=== PATIENT | male | born 1980 | race African-American/Black ===

== ENCOUNTER 2023-01-29 05:47 | Emergency (ER) | payer SELFPAY ==
[2023-01-29 05:51] VITALS: BP 136/97; PULSE 97; RESP 16; TEMP 36.8; O2SAT 98; BMI 23.1
--- NOTE | 2023-01-29 06:01 | ED_ITS ---
HPI - Skin/Abscess/Foreign Bdy General Chief complaint: Skin/Abscess/Foreign Body Stated complaint: OTHER Time Seen by Provider: 01/29/23 06:01 History of Present Illness HPI narrative: Patient presents to emergency department complaining of rectal pain and swelling. He states symptoms started 3 days ago. He has had this in the past and he gets antibiotics and aerosols. He has some doxycycline left from a previous boil and he took it the last 2 days and he has not had any relief but states that is getting worse more swollen and more painful. Patient states he had fever, and chills. Denies any nausea, vomiting, diarrhea, or abdominal pain. He denies any IV drug use. He does smoke marijuana. Related Data Allergies Allergy/AdvReac Type Severity Reaction Status Date / Time sulfamethoxazole Allergy Severe Verified 01/29/23 05:59 [From Bactrim] trimethoprim [From Bactrim] Allergy Severe Verified 01/29/23 05:59 Review of Systems ROS0 Status of ROS 10 or more systems reviewed and unremarkable except as noted in history and below Exam Narrative Exam Narrative: Nurses notes and vital signs reviewed and patient is not hypoxic. General: Nontoxic, Well-appearing and in no apparent distress. Skin: Warm, dry, no pallor noted. No Rash Head: Normocephalic, atraumatic. Neck: Supple, non-tender. Eye: Pupils are equal, round and EOMI. No scleral icterus. Ears, Nose, Mouth, and Throat: TM clear, no posterior oropharynx erythema or nasal mucosal hypertrophy, uvula is mid-line Oral mucosa is moist Cardiovascular: Regular Rate and Rhythm without murmur, gallop or rub. Respiratory: No accessory muscle use or respiratory distress. Lungs are clear to auscultation, no wheezing, rales or rhonchi Chest Wall: no tenderness Back: No midline thoracic or lumbar vertebral tenderness. No CVA tenderness Musculoskeletal: normal ROM, no calf or popliteal tenderness, no lower extremity edema/swelling GI: Abdomen is soft, non-distended. Normal bowel sounds. No masses appreciated. No tenderness to palpation. No rebound, guarding, or rigidity noted. Rectal: thumb size bulging to the right perirectal area extremely tender to palpation. Minimal fluctuance. Consistent with an abscess Neurological: A&O x4. No cranial nerve dysfunction observed. No truncal ataxia. Moves all extremities. Sensation intact. Psychiatric: Cooperative and interactive. Normal mood and affect. Constitutional Vital Signs, click to edit/add: Last Vital Signs Temp 98.2 F 01/29/23 05:51 Pulse 97 H 01/29/23 05:51 Resp 16 01/29/23 05:51 BP 136/97 H 01/29/23 05:51 Pulse Ox 98 01/29/23 05:51 O2 Del Method Room Air 01/29/23 05:51 Course Vital Signs Vital signs: Vital Signs Temperature 98.2 F 01/29/23 05:51 Pulse Rate 97 H 01/29/23 05:51 Respiratory Rate 16 01/29/23 05:51 Blood Pressure 136/97 H 01/29/23 05:51 Pulse Oximetry 98 01/29/23 05:51 Oxygen Delivery Method Room Air 01/29/23 05:51 Temperature 98.2 F 01/29/23 05:51 Pulse Rate 97 H 01/29/23 05:51 Respiratory Rate 16 01/29/23 05:51 Blood Pressure 136/97 H 01/29/23 05:51 Pulse Oximetry 98 01/29/23 05:51 Oxygen Delivery Method Room Air 01/29/23 05:51 MDM - Skin/Abscess/Foreign Bdy MDM Narrative Medical decision making narrative: IV was established. Patient was given clindamycin 900 mg IV. He will be signed out at the end of my shift to Dr. Muñoz awaiting labs, and CT scan of the pelvis. Differential Diagnosis Differential diagnosis: Likely abscess of skin or subcutaneous tissue Discharge Plan Discharge Chief Complaint: Skin/Abscess/Foreign Body Clinical Impression: Abscess, perirectal Patient Disposition: Still a Patient Referrals: Physician,Non-Staff, MD [Primary Care Provider] - 1 week
--- NOTE | 2023-01-29 06:26 | CT_ITS ---
[address] [address] Patient Name: GRACIE ROJAS MRN: [id number] date: 1980 Sex: M Assigned Patient Location: ER Current Patient Location: ED.MAIN Accession/Order Number: [id number] Exam Date: 01/29/2023 06:38 Report Date: 01/29/2023 07:40 At the request of: LYUBOV DONALD Procedure: CT abdomen w con EXAMINATION: CT abdomen w con HISTORY: perirectal abscess COMPARISON: No relevant comparison available. TECHNIQUE: CT images were created with IV contrast. Axial, Coronal, and Sagittal images. Dose reduction techniques were achieved by using automated exposure control and/or adjustment of mA and/or kV according to patient size and/or use of iterative reconstruction technique FINDINGS: LUNG BASES: No visible pulmonary or pleural disease. LIVER: No enlargement, atrophy, abnormal density, or significant focal lesion. BILIARY: No visible dilatation or calcification. PANCREAS: No lesion, fluid collection, ductal dilatation, or atrophy. SPLEEN: No enlargement or focal lesion. ADRENALS: No mass or enlargement. KIDNEYS: No mass, obstruction, or calcification. BOWEL/MESENTERY: Fluid-filled loops of small bowel without appreciable obstruction. Mild diverticulosis of sigmoid colon without acute inflammatory changes. AORTA/VASCULAR: No aneurysm or dissection. RETROPERITONEUM: No mass or adenopathy. ABDOMINAL WALL: No mass or hernia. BONES: No bony lesion or fracture. OTHER: 2.7 x 2.5 x 1.3 cm thick-walled complex fluid collection versus hypodense mass within subcutaneous fat of the perineum deep to the gluteal fold. No free air. No extension into the deeper fat of the perineum or muscle involvement. CT/CT abdomen w con IMPRESSION: 1. Contained, complex fluid collection within subcutaneous fat of perineum consistent with patient history and boil. No free air to suggest abscess, or extension into the deeper soft tissues. Electronically authenticated by: MARGARITA VERDE Date: 01/29/2023 07:40
[2023-01-29] MEDS: 0.9 % SODIUM CHLORIDE 1,000 ML 999 ML IV (06:55)
[2023-01-29] MEDS: KETOROLAC TROMETHAMINE 30 MG/ML VIAL IVP (06:56)
[2023-01-29] MEDS: CLINDAMYCIN PHOSPHATE/D5W 900 MG/50 ML PIGGYBACK 100 MG IV (06:56)
[2023-01-29 07:39] LABS: Basophils Absolute Auto 0.1 10^3/uL (0.0-0.1); Basophils Percent Auto 0.3 % (0.2-2.0); Eosinophils Absolute Auto 0.3 10^3/uL (0.0-0.7); Eosinophils Percent Auto 1.7 % (0.9-7.0); Hematocrit 45.2 % (42.0-54.0); Hemoglobin 15.1 g/dL (14.0-18.0); Immature Granulocytes Abs Auto 0.08 10^3/uL (0.00-0.03); Immature Granulocytes Pct Auto 0.5 % (0.0-0.5); Lymphocytes Absolute Auto 2.2 10^3/uL (1.2-3.8); Mean Corpuscular HGB Conc 33.4 g/dL (29.9-35.2); Mean Corpuscular Hemoglobin 32.4 pg (25.9-34.0); Monocytes Absolute Auto 1.4 10^3/uL (0.3-0.8); Monocytes Percent Auto 8.9 % (1.7-12.0); Neutrophils Absolute Auto 11.7 10^3/uL (1.4-6.5); Neutrophils Percent Auto 74.6 % (43.0-75.0); Platelet Count 259 10^3/uL (150-450); Red Blood Count 4.66 10^6/uL (4.70-6.10); Red Cell Distribution Width 13.2 % (11.0-15.0); White Blood Count 15.7 10^3/uL (4.0-11.0)
[2023-01-29 07:52] LABS: Anion Gap 11.9; BUN Creatinine Ratio 15.2; Carbon Dioxide 29.2 mmol/L (21.0-32.0); Chloride 103 mmol/L (98-107); Estimated GFR (African America >60 (>=60); Estimated GFR (Non-African Ame >60 (>=60); Glucose 111 mg/dL (74-106); Potassium 4.1 mmol/L (3.5-5.1); Sodium 140 mmol/L (136-145)
--- NOTE | 2023-01-29 08:59 | PC.NURSE ---
GENERAL SURGEON AT BEDSIDE EXPLAINING I/D BEDSIDE PROCEDURE -- PT IS NOW REFUSING ANY PROCEDURE OR TREATMENT.
--- NOTE | 2023-01-29 09:08 | PM.GSCN ---
History of Present Illness Consult details Consult date: 01/29/23 Reason for consult: other (gluteal pain/swelling) Narrative: 42 yo M presents with gluteal swelling/pain that has progressed over past 3 days. Pt states he feels a bump/mass near his anus. He denies any drainage. Denies any recent trauma to region. Denies any n/v, sob or chest pain. Pt denies any changes in bowel habits. Denies any blood in stool. Pt does admit to some subjective fevers last night. Pt states he has had abscesses in the past with some requiring drainage. Pt had CT imaging done which confirmed a 2.7 x 2.5 x 1.3 cm thick-walled complex fluid collection in the gluteal cleft slightly right of midline. Pt was offered an I&D and refused. Pt states he would like to let it express itself on its own. I advised the pt that an I&D would help prevent and decrease the risks of this infection becoming worse and more complex. I warned pt of the concerns of not having it drained and progressing into a potential life threatening infection, sepsis, etc. Pt said he will keep a close eye on it and take oral Abx. Discussed with pt that if he returns the collection can be drained. Pt admits to cigarette use which I encouraged pt to cease given the increase complications with tissue healing. Pt denies being on any blood thinners or taking any daily medications. Review of Systems ROS Status of ROS 10 or more systems reviewed and unremarkable except as noted in history and below Meds Home Medications and Allergies Home Medications Medication Instructions Recorded Confirmed Type amoxicillin 875 mg-potassium 1 tab PO BID #20 tabs 01/29/23 Rx clavulanate 125 mg tablet clindamycin HCl 300 mg capsule 300 mg PO Q8H 10 days #30 caps 01/29/23 Rx ibuprofen 600 mg tablet 600 mg PO Q8H PRN pain #20 tabs 01/29/23 Rx Allergies Allergy/AdvReac Type Severity Reaction Status Date / Time sulfamethoxazole Allergy Severe Verified 01/29/23 05:59 [From Bactrim] trimethoprim [From Bactrim] Allergy Severe Verified 01/29/23 05:59 Exam Constitutional Vital Signs, click to edit/add: Last Vital Signs Temp 98.2 F 01/29/23 05:51 Pulse 97 H 01/29/23 05:51 Resp 16 01/29/23 05:51 BP 136/97 H 01/29/23 05:51 Pulse Ox 98 01/29/23 05:51 O2 Del Method Room Air 01/29/23 05:51 Common normals: no apparent distress, average body habitus and oriented x3 Eye Common normals: PERRL and EOMs intact bilaterally Chest Breast/axilla inspection: normal inspection of the axillae Respiratory Common normals: normal respiratory effort, no retractions and no use of accessory muscles Cardio Common normals: regular rate GI Common normals: soft to palpation and non-tender Inspection: normal to inspection and abdominal distension (none) Palpation: soft Rectal Exam - Male: mass (mid/right gluteal cleft ) Other: 2.5x3cm gluteal mass with no surrounding erythema, fluid filled, tender to palpation, no expressible fluid, no crepitus, NATASHA refused by pt, no other acute abnormalities of the gluteal/anal region Extremity Common normals: normal to inspection Neuro Common normals: oriented x3, moves all extremities and no focal motor deficits Psych Common normals: mental status grossly normal Results Labs Labs: Abnormal lab results 01/29/23 Range/Units 06:30 WBC 15.7 H (4.0-11.0) 10^3/uL RBC 4.66 L (4.70-6.10) 10^6/uL MCV 97.0 H (80.0-94.0) fL MPV 9.0 L (9.5-13.5) fL Lymph % (Auto) 14.0 L (20.5-60.0) % Neut # (Auto) 11.7 H (1.4-6.5) 10^3/uL Keith # (Auto) 1.4 H (0.3-0.8) 10^3/uL Abs Immat Gran (auto) 0.08 H (0.00-0.03) 10^3/uL Glucose 111 H (74-106) mg/dL Diabetes panel 01/29/23 Range/Units 06:30 Sodium 140 (136-145) mmol/L Potassium 4.1 (3.5-5.1) mmol/L Chloride 103 (98-107) mmol/L Carbon Dioxide 29.2 (21.0-32.0) mmol/L BUN 14.0 (7.0-18.0) mg/dL Creatinine 0.92 (0.70-1.30) mg/dL Glucose 111 H (74-106) mg/dL Calcium 9.0 (8.5-10.1) mg/dL Calcium panel 01/29/23 Range/Units 06:30 Calcium 9.0 (8.5-10.1) mg/dL Pituitary panel 01/29/23 Range/Units 06:30 Sodium 140 (136-145) mmol/L Potassium 4.1 (3.5-5.1) mmol/L Chloride 103 (98-107) mmol/L Carbon Dioxide 29.2 (21.0-32.0) mmol/L BUN 14.0 (7.0-18.0) mg/dL Creatinine 0.92 (0.70-1.30) mg/dL Glucose 111 H (74-106) mg/dL Calcium 9.0 (8.5-10.1) mg/dL Adrenal panel 01/29/23 Range/Units 06:30 Sodium 140 (136-145) mmol/L Potassium 4.1 (3.5-5.1) mmol/L Chloride 103 (98-107) mmol/L Carbon Dioxide 29.2 (21.0-32.0) mmol/L BUN 14.0 (7.0-18.0) mg/dL Creatinine 0.92 (0.70-1.30) mg/dL Glucose 111 H (74-106) mg/dL Calcium 9.0 (8.5-10.1) mg/dL All other labs normal. Assessment and Plan Assessment and Plan (1) Abscess, perirectal: Plan Offered patient incision and drainage, explained the risks and benefits, pt refused procedure at this time and acknowledge the risks associated with not having the abscess drained Patient encouraged to take antibiotics given refusal to drain. Patient to wash the area daily and perform sitz bath x3 or more a day as tolerated. Keep area dry and clean. Patient to follow up as out pt with PCP Encouraged to cease smoking Patient to return if develops worsening symptoms. Discussed with the ED physician
== END 2023-01-29 09:32 | disposition home or self-care (01) ==
PROVIDERS: Emergency Provider Emergency Medicine
DX: K61.1 Rectal abscess (principal)
CPT/HCPCS: 36415; 74160; 80048; 85025; 96374; 96375; 99285; Q9967